=== PATIENT | female | born 1975 | race Caucasian/White ===

== ENCOUNTER 2019-08-26 15:24 | Emergency (ER) | payer SELFPAY ==
[~2019-08-26] VITALS: Ht 157.5 cm; Wt 67.6 kg
[2019-08-26 15:29] VITALS: Ht 157.5 cm; Wt 67.6 kg
[2019-08-26 17:40] LABS: BASOPHIL % 0.6 % (0-2); PLATELET COUNT 361 x10^3mcL (130-400)
[2019-08-26 17:50] LABS: CALCIUM 8.6 mg/dL (8.5-10.1); CHLORIDE SERUM 105 mmol/L (98-107); CREATININE SERUM 0.6 mg/dL (0.6-1.0); GFR1 > 60 mL/min; GLUCOSE SERUM 119 mg/dL (74-106); POTASSIUM SERUM 3.8 mmol/L (3.5-5.1); SODIUM SERUM 141 mmol/L (136-145)
[2019-08-26 17:51] LABS: C REACTIVE PROTEIN 0.3 mg/dL (<=0.9)
[2019-08-26 18:25] LABS: ERYTHROCYTE SED RATE 34 mm/hr (0-20)
[2019-08-26 20:17] VITALS: BP 146/84
== END 2019-08-26 20:55 | disposition short-term general hospital (02) ==
LOC: ED 15:24
PROVIDERS: Emergency Medicine
DX: H54.62 Unqualified visual loss, left eye, normal vision right eye (principal); H57.89 Other specified disorders of eye and adnexa
CPT/HCPCS: 36415; 76512; 82962